=== PATIENT | male | born 1960 | race Caucasian/White ===

== ENCOUNTER 2018-07-22 15:51 | Emergency (ER) | payer OTHER ==
[~2018-07-22] VITALS: Ht 175.3 cm; Wt 78.5 kg
[~2018-07-22 15:51] MED LIST: BENA5TAB13 PO; LEVEMIR SUBQ
[2018-07-22 16:10] VITALS: BP 149/98
--- NOTE | 2018-07-22 16:59 | NUR ---
58 yo m bib self w/ c/o left arm pain s/p lost his balance while kneeling. pt states he was pulling weeds and lost his balance, caught his fall w/ left arm. reports left arm and elbow pain. -edema/ecchymosis/deformity.
--- NOTE | 2018-07-22 17:28 | NUR ---
Dr. Clemens at bedside.
--- NOTE | 2018-07-22 17:32 | NUR ---
splint and sling being applied by emt at bedside.
[2018-07-22] MEDS ORDERED: IBUPROFEN 800 MG TAB PO ONE (17:40)
[2018-07-22 17:45] VITALS: BP 149/98
== END 2018-07-22 17:45 | disposition home or self-care (01) ==
LOC: MED 15:51
DX: S52.102A Unspecified fracture of upper end of left radius, initial encounter for closed fracture (principal); E11.9 Type 2 diabetes mellitus without complications; I10 Essential (primary) hypertension; Z79.4 Long term (current) use of insulin; Z79.899 Other long term (current) drug therapy; W18.39XA Other fall on same level, initial encounter; Y93.H2 Activity, gardening and landscaping; Y92.096 Garden or yard of other non-institutional residence as the place of occurrence of the external cause; Y99.8 Other external cause status
CPT/HCPCS: 29505; 73030; 73080; 99283; Q0092

== ENCOUNTER 2023-02-28 16:29 | Emergency (ER) | payer OTHER ==
[~2023-02-28] VITALS: Ht 170.2 cm; Wt 71.2 kg
[2023-02-28 16:33] VITALS: BP 173/90; PULSE 88; RESP 15; TEMP 98.1; O2SAT 97
[2023-02-28 18:00] LABS: BASOPHILS % (AUTO) 0.2 % (0.0-2.0); EOSINOPHILS % (AUTO) 0.3 % (0.0-4.0); HEMATOCRIT 43.3 % (36-52); HEMOGLOBIN 14.7 g/dL (12.0-18.0); LYMPHOCYTES # (AUTO) 1.3 K/uL (2.0-11.5); LYMPHOCYTES % (AUTO) 10.2 % (20.5-51.1); MEAN CORPUSCULAR HEMOGLOBIN 29 pg (27-31); MEAN CORPUSCULAR HGB CONC 34 g/dL (33-37); MEAN CORPUSCULAR VOLUME 83.6 fL (80-94); MONOCYTES # (AUTO) 0.6 K/uL (0.8-1.0); MONOCYTES % (AUTO) 4.5 % (1.7-9.3); NEUTROPHILS # (AUTO) 10.9 K/uL (1.8-7.7); NEUTROPHILS % (AUTO) 84.8 % (42.2-75.2); PLATELET COUNT (AUTO) 210 K/uL (140-450); RED BLOOD CELL COUNT(AUTO) 5.18 MIL/uL (4.20-6.10); RED CELL DISTRIBUTION WIDTH 12.3 % (11.6-13.7); WHITE BLOOD COUNT (AUTO) 12.9 K/uL (4.8-10.8)
[2023-02-28 18:12] LABS: AMPHETAMINE, URINE NEGATIVE ng/ml (NEG <=1000); BARBITURATE, URINE NEGATIVE ng/ml (NEG <=200); BENZODIAZEPINE, URINE NEGATIVE ng/mL (NEG <=200); CANNABINOID, URINE NEGATIVE ng/mL (NEG <=50); COCAINE, URINE NEGATIVE ng/mL (NEG <=300); OPIATE, URINE NEGATIVE ng/mL (NEG <=2000); PHENCYCLIDINE SCREEN,URINE NEGATIVE ng/mL (NEG <=25)
[2023-02-28 18:17] LABS: ALANINE AMINOTRANSFERASE 25 U/L (12-78); ALBUMIN 4.1 g/dL (3.4-5.0); ALKALINE PHOSPHATASE 105 U/L (50-136); ANION GAP 11.3 (8-16); ASPARTATE AMINOTRANSFERASE 23 U/L (15-37); CALCIUM 9.1 mg/dL (8.5-10.1); CHLORIDE 102 mmol/L (98-107); CREATININE 1.2 mg/dL (0.6-1.3); GFR ARICAN-AMERICAN 79 mL/min (>90); GFR NON ARICAN-AMERICAN 65 mL/min (>90); GLUCOSE 245 mg/dL (74-106); POTASSIUM 4.3 mmol/L (3.5-5.1); SODIUM SERUM 137 mmol/L (136-145); TOTAL BILIRUBIN 0.8 mg/dL (0.0-1.0); UREA NITROGEN, BLOOD 12 mg/dL (7-18)
[2023-02-28 18:18] LABS: ACETAMINOPHEN < 0.5 ug/ml (10-30); ALCOHOL, BLOOD < 3 mg/dL (<10); SALICYLATE < 2.8 mg/dL (2.8-20.0)
[2023-02-28 18:53] VITALS: BP 157/80; PULSE 77; RESP 11; TEMP 97.4; O2SAT 98
== END 2023-02-28 18:53 | disposition home or self-care (01) ==
LOC: MED 16:29
DX: R45.1 Restlessness and agitation (principal); R53.1 Weakness; R55 Syncope and collapse; E11.9 Type 2 diabetes mellitus without complications; I10 Essential (primary) hypertension; Z79.4 Long term (current) use of insulin; Z79.899 Other long term (current) drug therapy
CPT/HCPCS: 36415; 80053; 80305; 85025; 93005; 99284; G0480; G0482

== ENCOUNTER 2023-12-03 20:53 | Emergency (ER) | payer OTHER ==
[~2023-12-03] VITALS: Ht 172.7 cm; Wt 79.8 kg
[2023-12-03 21:05] VITALS: BP 146/87; PULSE 84; RESP 16; TEMP 98.6; O2SAT 99
[2023-12-03 21:46] VITALS: BP 146/87; PULSE 84; RESP 16; TEMP 98.6
[2023-12-03 21:47] VITALS: O2SAT 99
[2023-12-03] MEDS ORDERED: AMOX1TAB8 PO (21:50)
[2023-12-03] MEDS: BACITRACIN OINT 500 UNITS/GM PKT TP ONE (21:57)
[2023-12-03] MEDS: AMOXIL/CLAVULANATE 875/125 MG 1 TAB PO ONE (21:57)
== END 2023-12-03 22:22 | disposition home or self-care (01) ==
LOC: MED 20:53
DX: S50.811A Abrasion of right forearm, initial encounter (principal); E11.9 Type 2 diabetes mellitus without complications; I10 Essential (primary) hypertension; Z86.69 Personal history of other diseases of the nervous system and sense organs; Z79.4 Long term (current) use of insulin; Z79.2 Long term (current) use of antibiotics; Z79.899 Other long term (current) drug therapy; W55.01XA Bitten by cat, initial encounter; Y93.89 Activity, other specified; Y92.89 Other specified places as the place of occurrence of the external cause; Y99.8 Other external cause status
CPT/HCPCS: 90471; 90715; 99283